=== PATIENT | female | born 1945 | race Caucasian/White ===

== ENCOUNTER 2017-08-03 13:00 | Emergency (ER) | payer OTHER ==
[~2017-08-03] VITALS: Ht 170.2 cm; Wt 95.3 kg
[~2017-08-03 13:00] MED LIST: AVAPRO300 MG; HUMALOG100 UNIT/1; KETO10TA2 PO; LANTUS SOL100 UNIT/1; LEVEMIR100 U/ML; MEDROL DOSE PACK PO; NEURONTIN300 MG PO; ORPH100T PO; PERCOCET 5/3251 TAB PO; VALTREX1000 MG PO; ZOVIRAX15 GM TP
== END 2017-08-03 14:35 | disposition home or self-care (01) ==
LOC: ER 13:00
DX: M54.5 Low back pain (principal)